=== PATIENT | female | born 1980 | race Caucasian/White ===

== ENCOUNTER → 2024-04-18 | Outpatient (CLI) | payer MEDICAID, SELFPAY ==
--- NOTE | 2024-04-18 07:00 | XR_ITS ---
Examination: MRI right hand, without contrast Date and time of exam: April 18, 2024 0711 hours INDICATIONS: Hyperextension injury to the sacrum August 15, 2023, fracture dislocation, persistent dominant hand pain Technique: Multiple axial sagittal and coronal images of the right hand have been obtained with the Siemens high-resolution 1.5 [place] MRI scanner. Images obtained include T2-weighted fat-suppressed sagittal sections, TR 3500, TE 46, T2 weighted coronal fat suppressed images, TR 3050, TE 84, T2-weighted transverse fat suppressed images, TR 3260, TE 63, proton density transverse images, TR 4720 TE 46, and T1 weighted coronal images, TR 560, TE 13. Findings: Marrow edema, mild in the distal aspect proximal phalanx Fluid-filled defect at the insertion of the ulnar collateral ligament the base of the proximal phalanx with mild cortical irregularity The ulnar collateral ligament is thickened at its origin with the metacarpal head The ligament projects away from the joint IMPRESSION: Partial tear of the ulnar collateral ligament of the thumb
== END | disposition home or self-care (01) ==
PROVIDERS: Referring Provider Nurse Practitioner Gerontology; Visit Provider Nurse Practitioner Gerontology
DX: S53.441A Ulnar collateral ligament sprain of right elbow, initial encounter (principal); X58.XXXA Exposure to other specified factors, initial encounter
CPT/HCPCS: 73218